=== PATIENT | female | born 1970 | race Caucasian/White ===

== ENCOUNTER → 2017-12-29 | Outpatient (CLI) | payer OTHER ==
--- NOTE | 2017-12-29 09:24 | WOMENS IMAGING REPORT ---
EXAM DESCRIPTION: BILAT SCREENING MAMMO W/CAD COMPLETED DATE/TIME: 12/29/2017 8:55 am REASON FOR STUDY: ROUTINE SCREENING;Z12.31 Z12.31 ENCNTR SCREEN MAMMOGRAM FOR MALIGNANT NEOPLASM OF CYDNEY COMPARISON: Multiple since 2013 TECHNIQUE: Standard craniocaudal and mediolateral oblique views of each breast recorded using SuperTrupera l acquisition. LIMITATIONS: None. FINDINGS: No masses, calcifications or architectural distortion. No areas of suspicion. Read with the assistance of CAD. .[facility] - R2 Cenova Version 1.3 .[facility] - R2 Cenova Version 1.3 .[facility] - R2 Cenova Version 2.4 .[facility] - R2 Cenova Version 2.4 .[facility] - R2 [employer] Closer Version 9.2 IMPRESSION: NORMAL MAMMOGRAM. BIRADS 1. BREAST DENSITY: a. The breasts are almost entirely fatty. BIRAD: 1 NEGATIVE RECOMMENDATION: ROUTINE SCREENING Please continue yearly bilateral screening mammography/ tomosynthesis in December 2018 COMMENT: The patient has been notified of the results by letter per MQSA requirements. Additional no tification policies are in place for contacting patient with suspicious or incomplete findings. Quality ID #[id number]: The [employer] recommends an annual screening mammogram for women aged 40 years or over. This facility utilizes a reminder system to ensure that all patients receive reminder letters, and/or direct phone calls for appointments. This includes reminders for routine scr eening mammograms, diagnostic mammograms, or other Breast Imaging Interventions when appropriate. Th is patient will be placed in the appropriate reminder system. The [employer] (ACR) has developed recommendations for screening MRI of the breast s in certain patient populations, to be used in conjunction with mammography. Breast MRI surveillanc e may be appropriate for women with more than 20% lifetime risk of developing breast cancer as deter mined by genetic testing, significant family history of the disease, or history of mantle radiation f or Hodgkins Disease. ACR Practice Guidelines 2008. TECHNICAL DOCUMENTATION: FINDING NUMBER: (1) ASSESSMENT: (1) JOB ID: [id number] [employer]- All Rights Reserved Reading location - IP/workstation name: [email or web address]
== END ==
LOC: WI 08:35
PROVIDERS: ATTEND Obstetrics & Gynecology Gynecology
DX: Z12.31 Encounter for screening mammogram for malignant neoplasm of breast (principal)
CPT/HCPCS: 77067

== ENCOUNTER 2018-06-10 08:12 | Emergency (ER) | payer OTHER ==
[2018-06-10] MEDS ORDERED: IBUPROFEN 600 MG TABLET PO ONE (09:12)
[2018-06-10] MEDS ORDERED: CYCLOBENZAPRINE HCL 10 MG TABLET PO ONE (09:12)
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
[2018-06-10 09:36] VITALS: BP 133/88
== END 2018-06-10 09:36 | disposition home or self-care (01) ==
LOC: ER 08:12
DX: S16.1XXA Strain of muscle, fascia and tendon at neck level, initial encounter (principal); M54.2 Cervicalgia; M54.5 Low back pain; M25.532 Pain in left wrist; V43.52XA Car driver injured in collision with other type car in traffic accident, initial encounter; I10 Essential (primary) hypertension; Z87.891 Personal history of nicotine dependence
CPT/HCPCS: 99283

== ENCOUNTER → 2019-03-10 | Outpatient (CLI) | payer OTHER ==
--- NOTE | 2019-03-10 15:55 | WOMENS IMAGING REPORT ---
EXAM DESCRIPTION: 3D SCREENING MAMMO BILAT COMPLETED DATE/TIME: 03/10/2019 8:33 am REASON FOR STUDY: ROUTINE BILATERAL SCREENING;Z12.31 Z12.31 ENCNTR SCREEN MAMMOGRAM FOR MALIGNANT N EOPLASM OF CYDNEY COMPARISON: Multiple since 2013 EXAM PARAMETERS: Views: Standard craniocaudal and mediolateral oblique views of each breast recorded using digital acquisition and breast tomosynthesis. Read with the assistance of CAD. .[facility] - Message [employer] Version 9.2 LIMITATIONS: None. FINDINGS: No suspicious masses, suspicious calcifications or architectural distortion. No areas of c oncern. IMPRESSION: Assessment: Negative MAMMOGRAM. BIRADS 1. BREAST DENSITY: a. The breasts are almost entirely fatty. BIRAD: 1 NEGATIVE RECOMMENDATION: ROUTINE SCREENING COMMENT: The patient has been notified of the results by letter per [place] requirements. Additional no tification policies are in place for contacting patient with suspicious or incomplete findings. Quality ID #[id number]: The [employer] recommends an annual screening mammogram for women aged 40 years or over. This facility utilizes a reminder system to ensure that all patients receive reminder letters, and/or direct phone calls for appointments. This includes reminders for routine scr eening mammograms, diagnostic mammograms, or other Breast Imaging Interventions when appropriate. Th is patient will be placed in the appropriate reminder system. TECHNICAL DOCUMENTATION: FINDING NUMBER: (1) ASSESSMENT: (1) JOB ID: [id number] [employer]- All Rights Reserved Reading location - IP/workstation name: [email or web address]
== END ==
LOC: WI 07:57
PROVIDERS: ATTEND Obstetrics & Gynecology Gynecology
DX: Z12.31 Encounter for screening mammogram for malignant neoplasm of breast (principal)
CPT/HCPCS: 77063; 77067

== ENCOUNTER 2020-05-18 08:47 | Emergency (ER) | payer OTHER ==
[2020-05-18 10:16] LABS: ABSOLUTE EOSINOPHILS # (AUTO) 0.3 10^3/uL (0.0-0.6); ABSOLUTE LYMPHOCYTES (AUTO) 2.2 10^3/uL (0.5-4.7); ABSOLUTE MONOCYTES (AUTO) 0.8 10^3/uL (0.1-1.4); ABSOLUTE NEUT (AUTO) 9.1 10^3/uL (1.7-8.2); BASOPHILS % (AUTO) 0.4 % (0-2); EOSINOPHILS % (AUTO) 2.1 % (0-6); HEMATOCRIT 46.5 % (36.0-47.0); HEMOGLOBIN 15.5 g/dL (12.0-15.5); LYMPHOCYTES % (AUTO) 17.6 % (13-45); MEAN CORPUSCULAR HEMOGLOBIN 31.1 pg (27.0-33.4); MEAN CORPUSCULAR HGB CONC 33.4 g/dL (32.0-36.0); MEAN CORPUSCULAR VOLUME 93 fl (80-97); MONOCYTES % (AUTO) 6.7 % (3-13); PLATELET COUNT 290 10^3/uL (150-450); RED CELL DISTRIBUTION WIDTH 12.6 % (11.5-14.0); SEGMENTED NEUTROPHILS % (AUTO) 73.2 % (42-78); TOTAL CELLS COUNTED % (AUTO) 100 %; WHITE BLOOD COUNT 12.5 10^3/uL (4.0-10.5)
[2020-05-18 10:23] LABS: APPEARANCE,URINE CLEAR; BILIRUBIN,URINE NEGATIVE (NEGATIVE); COLOR,URINE YELLOW; GLUCOSE, URINE NEGATIVE (NEGATIVE); KETONES,URINE NEGATIVE (NEGATIVE); LEUKOCYTE ESTERASE,URINE NEGATIVE (NEGATIVE); NITRITE,URINE NEGATIVE (NEGATIVE); PROTEIN,URINE NEGATIVE (NEGATIVE); URINE SPECIFIC GRAVITY 1.012; UROBILINOGEN,URINE NEGATIVE mg/dL (<2.0)
[2020-05-18 10:43] LABS: ALBUMIN 4.3 g/dL (3.5-5.0); ALKALINE PHOSPHATASE 73 U/L (38-126); ANION GAP 9 (5-19); ASPARTATE AMINO TRANSFERASE 19 U/L (14-36); BLOOD UREA NITROGEN 15 mg/dL (7-20); CALCIUM 9.6 mg/dL (8.4-10.2); CARBON DIOXIDE 23 mmol/L (22-30); CHLORIDE 105 mmol/L (98-107); GLUCOSE 137 mg/dL (75-110); POTASSIUM 4.1 mmol/L (3.6-5.0); TOTAL PROTEIN 7.2 g/dL (6.3-8.2)
[2020-05-18] MEDS ORDERED: DIAZEPAM 5 MG TABLET PO ONE (11:37)
--- NOTE | 2020-05-18 11:46 | ER Document Report ---
ED General - General TRAVEL OUTSIDE OF THE [place]. IN LAST 30 DAYS: No <ERNST RODGERS - Last Filed: 05/18/20 16:27> <TRISTAJUAN DANIEL Hirsch - Last Filed: 05/18/20 17:37> - General Chief Complaint: Dizziness Stated Complaint: DIZZINESS Time Seen by Provider: 05/18/20 10:13 - HPI Notes: Chief complaint: Vertigo History of present illness: 49-year-old female with history of chronic recurrent vertigo for several years. She is taken meclizine intermittently with minimal relief. Her most recent episode is been going on for 3 weeks and is bad enough that she walked in the edge of a desk this morning when her gait became unsteady. No headache. No fever. No vomiting. She seen an ENT and had audiogram and full evaluation and was told that this was likely benign vertigo. They put her on a brief course of steroids. This had no effect on her symptoms. No one is done a CT or an MRI for this lady. She denies any known history of stroke or TIAs she denies any focal sensorimotor deficits. No changes in vision. No changes in speech or swallowing. History of mild hypertension. History of hyperlipidemia. Patient is not diabetic. No known allergies. (ERNST RODGERS) - Related Data Allergies/Adverse Reactions: No Known Allergies Allergy (Verified 05/18/20 09:23) Past Medical History - General Information source: Patient, Relative, [facility] Records - Social History Smoking Status: Former Smoker Chew tobacco use (# tins/day): No Frequency of alcohol use: None Drug Abuse: None Family History: Reviewed & Not Pertinent Patient has homicidal ideation: No - Past Medical History Cardiac Medical History: Reports: Hx Hypercholesterolemia, Hx Hypertension Endocrine Medical History: Denies: Hx Diabetes Mellitus Type 1, Hx Diabetes Ritu itus Type 2 Renal/ Medical History: Denies: Hx Peritoneal Dialysis Past Surgical History: Reports: Hx Section, Hx Orthopedic Surgery - carple tunnel right hand - Immunizations Immunizations up to date: Yes Hx Diphtheria, Pertussis, Tetanus Vaccination: Yes <ERNST RODGERS - Last Filed: 05/18/20 16:27> Review of Systems <ERNST RODGERS - Last Filed: 05/18/20 16:27> - Review of Systems Notes: Constitutional: Negative for fever. HENT: As per HPI. Eyes: Negative for visual changes. Cardiovascular: Negative for chest pain. Respiratory: Negative for shortness of breath. Gastrointestinal: Negative for abdominal pain, vomiting or diarrhea. Genitourinary: Negative for dysuria. Musculoskeletal: Negative for back pain. Skin: Negative for rash. Neurological: As per HPI. 10 point ROS negative except as marked above and in HPI. (ERNST RODGERS) Physical Exam <ERNST RODGERS - Last Filed: 05/18/20 16:27> - Vital signs Vitals: Temp Pulse Resp BP Pulse Ox 98.8 F 95 16 159/92 H 99 05/18/20 08:51 05/18/20 08:51 05/18/20 08:51 05/18/20 08:51 05/18/20 08:51 - Notes Notes: 05/18/20 11:45 GENERAL: Mildly obese middle-aged female appearing in no acute distress. SKIN: Good turgor no rashes. HEAD: Normocephalic atraumatic. EYES: PERRLA. Minimal lateral nystagmus bilaterally. Conjunctivae and sclerae clear. EARS: CANALS AND TMS CLEAR. NOSE: CLEAR. MOUTH: Moist mucosa. Good dentition. No stridor or edema. No drooling. NECK: Supple. No masses or thyromegaly. No adenopathy. Carotids 2+ without bruits. No JVD. BACK: Symmetrical without tenderness. CHEST: Respirations unlabored. Breath sounds clear and symmetrical. HEART: Regular rhythm. No murmur gallop or rub. ABDOMEN: Soft nontender without masses, organomegaly or rebound. Bowel sounds normally active. No bruits. GENITALIA: Deferred. EXTREMITIES: No edema. No calf tenderness. Cap refill less than 1.5 seconds. Dorsalis pedis and posterior tibial pulses 3+ and symmetrical. NEUROLOGICAL: GCS 15. Alert and oriented x3. Minimal ataxia. Fluent speech. Cranial nerves II through XII intact. Sensorimotor and cerebellar normal. Normal tone. PSYCHIATRIC: Appropriate affect. 05/18/20 16:24 (ERNST RODGERS) Course - Laboratory Result Diagrams: 05/18/20 09:55 05/18/20 09:55 - Diagnostic Test Radiology reviewed: Reports reviewed - Brain MRI per radiologist demonstrates multiple small meningiomas and overall appearance is suggestive of possible congenital neurofibromatosis. No mass-effect. <ERNST RODGERS - Last Filed: 05/18/20 16:27> - Laboratory Result Diagrams: 05/18/20 09:55 05/18/20 09:55 <JUAN DANIEL GONSALEZ JR - Last Filed: 05/18/20 17:37> - Re-evaluation Re-evalutation: Patient was given some diazepam for symptomatic treatment. She was mildly ataxic and had mild lateral nystagmus with otherwise unremarkable neurologic exam. Brain MRI was obtained and demonstrated multiple small meningiomas with radiologist raising suggestion that the patient could have congenital neurofibromatosis. Interestingly her sister states that she has had the same thing and has been treated at [facility] with multiple prior surgical procedures. Patient is requested that we make a referral to [facility] for her. I have forwarded the images through the transfer center at [facility] and we are awaiting return call from on-call neurosurgeon at that facility. Further care of this patient is turned over to Dr. Gonsalez at 430 hours. (ERNST RODGERS) - Vital Signs Vital signs: Temp Pulse Resp BP Pulse Ox 98.8 F 93 16 141/84 H 97 05/18/20 08:51 05/18/20 17:21 05/18/20 17:21 05/18/20 17:21 05/18/20 17:21 - Laboratory Laboratory results interpreted by me: 05/18/20 05/18/20 05/18/20 09:37 09:55 09:55 WBC 12.5 H Absolute Neuts (auto) 9.1 H Sodium 136.6 L Glucose 137 H Urine Blood SMALL H - EKG Interpretation by Me Additional EKG results interpreted by me: 05/18/20 16:27 Twelve-lead EKG from 0943 hrs. reviewed contemporaneously by me demonstrating normal sinus rhythm with a rate of 80 and a normal QRS axis of +8 degrees. Intervals are normal. There are no acute ST/T wave changes present. There is no old tracing for direct comparison. Indication for current study: Vertigo. (ERNST RODGERS) Critical Care Note <JUAN DANIEL GONSALEZ JR - Last Filed: 05/18/20 17:37> - Critical Care Note Comments: Dr. Jovany Flores neurosurgeon advised Renita at the [facility] transfer center that the patient is stable for now as far as the scan reports ago and may go home and he will follow-up with her on Thursday. (JUAN DANIEL GONSALEZ JR) Discharge <ERNST RODGERS - Last Filed: 05/18/20 16:27> <JUAN DANIEL GONSALEZ JR - Last Filed: 05/18/20 17:37> - Discharge Clinical Impression: Meningiomas, multiple, Vertigo Condition: Good Disposition: HOME, SELF-CARE Additional Instructions: Follow-up with Dr. Jovany Flores neurosurgeon or he will contact you on Thursday. Also continue with your Antivert medication. Since you finished your prednisone 10 today do not continue with any more prednisone. Try to avoid bending lifting or twisting to avoid any dizziness. Forms: Return to Work
--- NOTE | 2020-05-18 14:57 | RADIOLOGY REPORT (SQ) ---
EXAM DESCRIPTION: MRI HEAD COMBO IMAGES COMPLETED DATE/TIME: 05/18/2020 12:44 pm REASON FOR STUDY: vertigo for 3 weeks. Chronic vertigo for several years. Intermittent for several years. Dizziness, off balance, vertigo. COMPARISON: CT head, 10/27/2013 TECHNIQUE: Multiplanar imaging includes noncontrasted T1, T2, FLAIR, diffusion with ADC map and post gadolinium contrast T1 sequences. Images stored on PACS. CONTRAST TYPE AND DOSE: 20 mL ProHance RENAL FUNCTION: Not indicated. ACR Type II contrast agent associated with few, if any, unconfounded cases of NSF LIMITATIONS: None. FINDINGS: ANATOMY: No anomalies. Normal vascular flow voids. Pituitary fossa normal. CSF SPACES: Normal in size and contour. No hemorrhage. CEREBRUM: Sulci and gyri normal in size and contour. Normal white matter signal on FLAIR imaging. Th ere is a homogeneously enhancing dural-based mass in the posteromedial right occipital region measuri ng 2.1 x 1.2 cm. This demonstrates an enhancing dural tail and is consistent with a meningioma. The re is a similar appearing dural-based mass with similar enhancement characteristics along the left me dial dura measuring 1.1 x 0.5 cm. Additional dural-based mass at the anterior right frontal lobe jean paul suring 0.8 by 0.8 cm also demonstrating homogeneous enhancement and dural tail consistent with a meni ngioma. There is a smaller similar enhancing mass along the right lateral temporal occipital lobe wi th homogeneous enhancement and enhancing dural tail extending along the tentorium and lateral dura me asuring 0.7 x 0.6 cm. There is no significant mass effect or evidence of surrounding vasogenic edema . No aggressive features. No evidence of intracranial hemorrhage or breakdown products of hemorrhag e. POSTERIOR FOSSA: No signal alteration. No hemorrhage. No edema, masses, or mass effect. Internal marcela tory canals, cerebellopontine angles, mastoids normal. No enhancing lesions. No abnormal enhancement post contrast. No evidence of vestibular schwannoma or abnormal cranial nerve enhancement. DIFFUSION IMAGING: Negative for acute or subacute infarction. ORBITS: No masses. Globes normal. PARANASAL SINUSES: No fluid levels. Mucosa normal. OTHER: No abnormal dural or leptomeningeal enhancement. IMPRESSION: 1. There are 4 dural-based masses in the supratentorial region L demonstrating homogeneous enhancemen t with enhancing dural tail consistent with multiple meningiomas. There is no significant mass effec t or aggressive features. Given multiplicity, consider congenital neurofibromatosis type 2. No evid ence of acoustic neuroma. 2. No acute ischemia, intracranial hemorrhage, or significant mass effect. EVIDENCE OF ACUTE STROKE: NO. TECHNICAL DOCUMENTATION: JOB ID: [id number] 2010 [employer]- All Rights Reserved Reading location - IP/workstation name: [email or web address]
--- NOTE | 2020-05-18 15:05 | EKG REPORT ---
SEVERITY:- NORMAL ECG - SINUS RHYTHM : Confirmed by: Nagi Ely MD 18-May-2020 15:04:32
[2020-05-18 17:24] VITALS: BP 141/84
== END 2020-05-18 17:45 | disposition home or self-care (01) ==
LOC: ER 08:47
DX: D32.9 Benign neoplasm of meninges, unspecified (principal); R42 Dizziness and giddiness; H55.00 Unspecified nystagmus; I10 Essential (primary) hypertension; E66.9 Obesity, unspecified; Z87.891 Personal history of nicotine dependence
CPT/HCPCS: 93005; 99284; 36415; 85025; 80053; 81001; 70553; 93010; A9576